=== PATIENT | male | born 1980 | race Caucasian/White ===

== ENCOUNTER 2018-01-31 09:17 | Emergency (ER) | payer BC ==
[2018-01-31 09:26] VITALS: BP 131/87
--- NOTE | 2018-01-31 10:07 | UC ---
Eye Complaint HPI - HPI Summary HPI Summary: 37 yo male presents with right eye redness and itchiness since yesterday. 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 Last night noticed his right eye was red and itchy - worse this morning. He is not having any vision difficulties. Denies fever or chills. Does not wear contacts. - History of Current Complaint Chief Complaint: UCEye Stated Complaint: R EYE COMPLAINT Time Seen by Provider: 01/31/18 10:07 Hx Obtained From: Patient Onset/Duration: Sudden Onset Severity Initially: Mild Severity Currently: Mild Pain Intensity: 2 Pain Scale Used: 0-10 Numeric - Allergies/Home Medications Allergies/Adverse Reactions: Allergies Allergy/AdvReac Type Severity Reaction Status Date / Time No Known Allergies Allergy Verified 01/31/18 09:25 PMH/Surg Hx/FS Hx/Imm Hx - Additional Past Medical History Additional PMH: None - Surgical History Surgical History: Yes Surgery Procedure, Year, and Place: knee - Family History Known Family History: Positive: None - Social History Occupation: Employed Full-time Lives: With Family Alcohol Use: Weekly Substance Use Type: Marijuana Substance Use Comment - Amount & Last Used: 2-3 times a year Smoking Status (MU): Never Smoked Tobacco Review of Systems Constitutional: Negative Skin: Negative Eyes: Drainage, Eye Redness - right ENT: Negative Respiratory: Negative Cardiovascular: Negative Neurovascular: Negative Neurological: Negative Psychological: Negative All Other Systems Reviewed And Are Negative: Yes Physical Exam - Summary Physical Exam Summary: GENERAL: WDWN. No pain distress. SKIN: No rashes, sores, lesions, or open wounds. HEENT: Head: AT/NC Eyes: EOM intact. PERRLA. RIGHT EYE: Mild scleral injection. Conjunctiva with mild erythema and inflammation. Mild clear discharge. LEFT EYE : Conjunctiva clear without inflammation or discharge. No FBs appreciated. Fluorescein exam performed on left without signs of abrasion or increased uptake. No mane sign. Nose: NTTP maxillary and frontal sinus. NECK: Supple. Nontender. No lymphadenopathy. CHEST: No accessory muscle use. Breathing comfortably and in no distress. CV: Pulses intact. Cap refill <2seconds NEURO: Alert. PSYCH: Age appropriate behavior. Triage Information Reviewed: Yes Vital Signs: Initial Vital Signs Temp 97.2 F 01/31/18 09:22 Pulse 67 01/31/18 09:22 Resp 18 01/31/18 09:22 BP 131/87 01/31/18 09:22 Pulse Ox 99 01/31/18 09:22 Vital Signs Reviewed: Yes Eye Complaint Course/Dx - Course Course Of Treatment: Dye exam is WNL and no FB were appreciated within in the cornea or under the eyelids. Will treat with antibiotic drops for conjunctivitis and have him f/u if his symptoms do not improve. - Differential Dx/Diagnosis Provider Diagnoses: Right eye conjunctivitis Discharge - Sign-Out/Discharge Documenting (check all that apply): Patient Departure All imaging exams completed and their final reports reviewed: No Studies - Discharge Plan Condition: Stable Disposition: HOME Prescriptions: Ofloxacin 0.3% (Eye Drop) [Ocuflox OPTH 0.3% (Eye Drop)] 1 drop RIGHT EYE QID # 1 btl Patient Education Materials: Conjunctivitis (ED) Referrals: No Primary Care Phys,NOPCP [Primary Care Provider] - Additional Instructions: If you develop a fever, shortness of breath, chest pain, new or worsening symptoms - please call your PCP or go to the ED. - Billing Disposition and Condition Condition: STABLE Disposition: Home
[2018-01-31] MEDS ORDERED: Tetracaine 0.5% OPTH.SOL 4 ML* 1 DROP BTL RIGHT EYE ONE (10:11)
[2018-01-31] MEDS ORDERED: Fluorescein Sodium TOPICAL* 1 MG TEST STRIP OPHTHALMIC ONE (10:11)
== END 2018-01-31 10:37 | disposition home or self-care (01) ==
LOC: UCEAST 09:17
DX: H10.31 Unspecified acute conjunctivitis, right eye (principal)
CPT/HCPCS: 99212; A9270-GY; G0463

== ENCOUNTER 2018-03-27 21:17 | Emergency (ER) | payer BC ==
--- NOTE | 2018-03-27 23:20 | ED ---
HPI Chest Pain - HPI Summary HPI Summary: This patient is a 37 year old M presenting to [facility] accompanied by his with a chief complaint of CP that began at 0630 this morning. The patient states he woke with the feeling of anxiety which was then followed by chest pressure and palpitations. He describes the pressure as a warm hand pressing into the middle of his chest. He states he then went to work and the chest pressure resolved and was fine at work all day but when he returned home he experienced a stabbing chest pain that radiated into his left shoulder blade, this prompted him to come to the ED. The patient rates the pain 7/10 in severity. Patient denies n/v/d, SOB, fever, chills, and diaphoresis. Pt took 4 ASA at 1900. - History of Current Complaint Chief Complaint: EDChestPainROMI Time Seen by Provider: 03/27/18 22:40 Hx Obtained From: Patient Onset/Duration: Started Hours Ago, Still Present Time of Onset: 06:30 Timing: Lasting Hours Initial Severity: Moderate Current Severity: Moderate Pain Intensity: 7 Pain Scale Used: 0-10 Numeric Chest Pain Location: Mid Sternal Chest Pain Radiates: Yes Chest Pain Radiates To:: Shoulder Character: Pressure/Squeezing, Sharp/Stabbing Associated Signs and Symptoms: Positive: Chest Pain, Anxiety. Negative: Shortness of Breath, Fever, Chills - Allergy/Home Medications Allergies/Adverse Reactions: Allergies Allergy/AdvReac Type Severity Reaction Status Date / Time No Known Allergies Allergy Verified 01/31/18 09:25 Home Medications: Home Medications Multivitamin [Once Daily] 1 each PO DAILY 03/27/18 [History Confirmed 03/27/18] PMH/Surg Hx/FS Hx/Imm Hx Endocrine/Hematology History: Denies: Hx Blood Transfusions, Hx Bone Marrow Disease, Hx Diabetes, Hx Sickle Cell Disease, Hx Anemia, Hx Unexplained Bleeding Cardiovascular History: Denies: Hx Cardiac Arrest, Hx Cardiomegaly, Hx Deep Vein Thrombosis, Hx Hypercholesterolemia Respiratory History: Denies: Hx Chronic Bronchitis, Hx Cystic Fibrosis, Hx Pleural Effusion History: Denies: Hx Acute Renal Failure, Hx Benign Prostatic Hyperplasia Musculoskeletal History: Denies: Hx Rheumatoid Arthritis, Hx Back Problems Psychiatric History: Denies: Hx Post Traumatic Stress Disorder, Hx Inpatient Treatment, Hx Bipolar Disorder - Surgical History Surgery Procedure, Year, and Place: knee Infectious Disease History: No Infectious Disease History: Denies: Traveled Outside the [place] in Last 30 Days - Family History Known Family History: Positive: Hypertension - Social History Occupation: Employed Full-time Lives: With Family Alcohol Use: Weekly Substance Use Type: Reports: Marijuana Substance Use Comment - Amount & Last Used: 2-3 times a year Smoking Status (MU): Never Smoked Tobacco Review of Systems Negative: Fever, Chills, Skin Diaphoresis Positive: Palpitations, Chest Pain Negative: Shortness Of Breath Negative: Vomiting, Diarrhea, Nausea Positive: Anxious All Other Systems Reviewed And Are Negative: Yes Physical Exam - Summary Physical Exam Summary: VITAL SIGNS: Reviewed. GENERAL: Patient is a well-developed and nourished male who is lying comfortable in the stretcher. Patient is not in any acute respiratory distress. HEAD AND FACE: No signs of trauma. No ecchymosis, hematomas or skull depressions. No sinus tenderness. EYES: PERRLA, EOMI x 2, No injected conjunctiva, no nystagmus. EARS: Hearing grossly intact. Ear canals and tympanic membranes are within normal limits. MOUTH: Oropharynx within normal limits. NECK: Supple, trachea is midline, no adenopathy, no JVD, no carotid bruit, no c- spine tenderness, neck with full ROM. CHEST: Symmetric, no tenderness at palpation LUNGS: Clear to auscultation bilaterally. No wheezing or crackles. CVS: Regular rate and rhythm, S1 and S2 present, no murmurs or gallops appreciated. ABDOMEN: Soft, non-tender. No signs of distention. No rebound no guarding, and no masses palpated. Bowel sounds are normal. EXTREMITIES: FROM in all major joints, no edema, no cyanosis or clubbing. NEURO: Alert and oriented x 3. No acute neurological deficits. Speech is normal and follows commands. SKIN: Dry and warm Triage Information Reviewed: Yes Vital Signs On Initial Exam: Initial Vitals Temp Pulse Resp BP Pulse Ox 97.9 F 74 20 150/94 100 03/27/18 21:18 03/27/18 21:18 03/27/18 21:18 03/27/18 21:18 03/27/18 21:18 Vital Signs Reviewed: Yes Diagnostics - Vital Signs Vital Signs Temp Pulse Resp BP Pulse Ox 03/27/18 21:18 97.9 F 74 20 150/94 100 - Laboratory Result Diagrams: 12/03/18 23:44 03/27/18 23:44 Lab Statement: Any lab studies that have been ordered have been reviewed, and results considered in the medical decision making process. - Radiology CXR Radiology Interpretation Completed By: ED Physician Summary of Radiographic Findings: no acute disease. Pending official report. - EKG 2124 Cardiac Rate: NL EKG Rhythm: Sinus Rhythm - at 83 BPM Summary of EKG Findings: Normal axis. Normal interval. No ischemic changes Chest Pain Course/Dx - Course Assessment/Plan: This patient is a 37 year old M presenting to [facility] accompanied by his with a chief complaint of CP that began at 0630 this morning. The patient states he woke with the feeling of anxiety which was then followed by chest pressure and palpitations. He describes the pressure as a warm hand pressing into the middle of his chest. He states he then went to work and the chest pressure resolved and was fine at work all day but when he returned home he experienced a stabbing chest pain that radiated into his left shoulder blade, this prompted him to come to the ED. The patient rates the pain 7/10 in severity. Patient denies n/v/d, SOB, fever, chills, and diaphoresis. Pt took 4 ASA at 1900. An EKG reveals Normal axis. Normal interval. No ischemic changes. CXR reveals, no acute disease. Pending official report. Bloodwork obtained. Patient will be discharged and follow up from Dr. vela. The patient is agreeable with this plan. - Diagnoses Provider Diagnoses: Chest pain Discharge - Sign-Out/Discharge Documenting (check all that apply): Patient Departure - Discharge Plan Condition: Stable Disposition: HOME Patient Education Materials: Chest Pain (ED) Referrals: Xavi Burns MD [Primary Care Provider] - Han Vela MD [Medical Doctor] - Additional Instructions: Please contact cardiology and schedule an outpatient stress test. Follow up with your primary care physician in 1-3 days. RETURN TO THE EMERGENCY DEPARTMENT FOR CHANGING OR WORSENING SYMPTOMS. - Attestation Statements Document Initiated by Scribe: Yes Documenting Scribe: Blake Emerson Provider For Whom Scribe is Documenting (Include Credential): Jeancarlos Hui MD Scribe Attestation: Blake Garcia , scribed for Jeancarlos Hui MD on 03/28/18 at 0411. Status of Scribe Document: Ready
[2018-03-27 23:53] LABS: ABS Basophils 0 10^3/ul (0-0.2); ABS Eosinophils 0.1 10^3/ul (0-0.6); ABS Lymphocytes 2.4 10^3/ul (1.0-4.8); ABS Monocytes 0.6 10^3/ul (0-0.8); ABS Neutrophils 2.9 10^3/ul (1.5-7.7); ABS Nucleated RBC 0 10^3/ul; Eosinophil % 2.1 %; Hematocrit 43 % (42-52); Hemoglobin 15.1 g/dl (14.0-18.0); Lymphocyte % 40.2 %; Mean Corpuscular HGB Conc 35 g/dl (31-36); Mean Corpuscular Hemoglobin 31 pg (27-31); Mean Corpuscular Volume 90 fL (80-94); Mean Platelet Volume 7.3 fL (7.4-10.4); Nucleated Red Blood Cells % 0.1; Platelet Count 231 10^3/ul (150-450); Red Blood Count 4.84 10^6/ul (4.00-5.40); Red Cell Distribution Width 13 % (10.5-15)
[2018-03-28 00:01] LABS: INR 0.9 (0.77-1.02)
[2018-03-28 00:10] LABS: EGFR Non-African American 104.6 (>60)
[2018-03-28 04:26] VITALS: BP 130/80
== END 2018-03-28 04:00 | disposition home or self-care (01) ==
LOC: ED 21:17
DX: R00.2 Palpitations (principal); R07.9 Chest pain, unspecified; F41.9 Anxiety disorder, unspecified
CPT/HCPCS: 36415; 71045; 80053; 83605; 83735; 84484; 85025; 85610; 85730; 93005; 99283

== ENCOUNTER 2019-04-24 11:55 | Day surgery (SDC) | payer BC ==
[~2019-04-24 11:55] MED LIST: Buffered Lidocaine 1% SYRIN* 1 ML/SYRINGE INTRADERM ONE; Famotidine IV* 10 MG/ML 2 ML (20 mg) IV ONE; Lactated Ringers 1000 ML Bag* 1,000 ML IV SCH
[2019-04-24] MEDS ORDERED: ceFAZolin 2 GM PREMIX in ORs 2 GM/50 ML BAG ONE (12:00)
[2019-04-24] MEDS ORDERED: Famotidine IV* 10 MG/ML 2 ML (20 mg) ONE (12:01)
[2019-04-24] MEDS ORDERED: Buffered Lidocaine 1% SYRIN* 1 ML/SYRINGE INTRADERM ONE (12:01)
[2019-04-24] MEDS ORDERED: fentaNYL* 50 MCG/ML 2 ML VIAL (100 MCG VIAL) ONE (12:17)
[2019-04-24] MEDS ORDERED: Midazolam* 1 MG/ML 5 ML VIAL (5 MG) ONE (12:17)
[2019-04-24] MEDS ORDERED: Lidocaine 1% MPF ** 5 ML VIAL ONE (13:15)
[2019-04-24] MEDS ORDERED: Bupivacaine 0.5% SDV PF* 30ML VIAL ONE (13:15)
[2019-04-24] MEDS ORDERED: ROPIVACAINE 5 MG/ML 30 ML BTL (0.5%) ONE (13:35)
[2019-04-24] MEDS ORDERED: Ropivacaine 0.2% * 2 MG/ML VIAL ONE (13:52)
[2019-04-24] MEDS ORDERED: Dexamethasone IV* 4 MG/ML 1 ML (4 MG) ONE (14:13)
[2019-04-24] MEDS ORDERED: Propofol* 10 MG/ML 20 ML BTL ONE (14:13)
[2019-04-24] MEDS ORDERED: Ondansetron INJ* 2 MG/ML VIAL ONE (14:13)
[2019-04-24] MEDS ORDERED: Succinylcholine* 20 MG/ML 10 ML VIAL ONE (14:13)
[2019-04-24] MEDS ORDERED: DiMENhydriNATE IV* 50 MG/ML VIAL ONE (14:13)
[2019-04-24] MEDS ORDERED: Lidocaine 2% PF * 5 ML VIAL ONE (14:13)
[2019-04-24] MEDS ORDERED: Ketorolac INJ* 30 MG/ML 1 ML VIAL ONE (14:13)
[2019-04-24] MEDS ORDERED: methylPREDNISolone ACETATE 80* 80 MG/ML 1 ML VIAL ONE (14:35)
[2019-04-24] MEDS ORDERED: Naloxone* 0.4 MG/ML 1 ML VIAL IV PRN (14:41)
[2019-04-24] MEDS ORDERED: oxyCODONE/Acetamin 5/325 MG* TAB PO PRN (14:41)
[2019-04-24] MEDS ORDERED: DiMENhydriNATE IV* 50 MG/ML VIAL IV PUSH PRN (14:41)
[2019-04-24] MEDS ORDERED: Acetaminophen TAB* 325 MG PO PRN (14:41)
[2019-04-24 15:49] VITALS: BP 150/96
--- NOTE | 2019-04-26 09:33 | OP ---
DATE OF OPERATION: 04/24/19 - MERGED WITH [facility] DATE OF : 76 SURGEON: Beverly Upton MD AGATE SETTER: MEENA Downey ANESTHESIOLOGIST: Dr. Crabtree. ANESTHESIA: General, interscalene block. PRE-OP DIAGNOSES: Impingement of left shoulder with superior labral tear, biceps tendinitis. POST-OP DIAGNOSES: Impingement of left shoulder with superior labral tear, biceps tendinitis. OPERATIVE PROCEDURE: Left shoulder arthroscopy with: 1. Extensive glenohumeral debridement including debridement of the anterior and posterior labrum. 2. Subacromial decompression with acromioplasty. 3. Subpectoral biceps tenodesis. IMPLANTS: Q-Fix 2.8 mm. COMPLICATIONS: None. ESTIMATED BLOOD LOSS: Minimal. INDICATIONS: Alexys Medina is a 38-year-old who presents with persistent shoulder pain. He had a lateral ache. He has failed conservative management. He has had injections. He also has some bicipital tendinitis and tendinosis. After extensive discussion of risks, and benefits of operative versus nonoperative treatment, he has elected to proceed with surgical treatment. Risk include but not limited to bleeding, infection, damage to nerves, vessels, or surrounding structures, wound nonhealing, persistent pain, need for further surgery, scarring, stiffness, incomplete relief of symptoms and risk of anesthesia. DESCRIPTION OF PROCEDURE: The patient was greeted in the preoperative area. Correct extremity was marked and consent was confirmed. He underwent interscalene nerve block after which he was brought back to the operating suite where he was placed in supine position on the operating table, then underwent general anesthesia with endotracheal intubation, after which he was placed in the right lateral decubitus position. All bony prominences were padded. He was secured with a pegboard. The left arm was draped unsterile with 10 pounds of traction. The left shoulder was then prepped and draped in usual sterile fashion beginning with chlorhexidine soap scrub and alcohol wipe and a final prep with ChloraPrep. After appropriate surgical pause indicating site, side, procedure, and administration of antibiotics. The standard posterior lateral portal was made sharply with #11 blade. The scope was introduced into the joint. Joint was examined. The rotator cuff undersurface looked intact. There was mild fraying of the superior labrum, but he had an excessive reattachment of his biceps, which can often cause impingement. He had a lot of synovitis posterior along the biceps. The subscap is intact. There was some fraying of the anterior posterior superior labrum. There was grade 0 to 1 change of glenohumeral joint. The biceps was then tenotomized for later tenodesis. Once the intraarticular work was completed, attention was directed to subacromial space. The scope was placed in the subacromial space and the lateral portal was made in an outside-in fashion. Shaver was used to debride back the abundant thick hyperemic bursa that was present. There was a small anterior lateral spur that was skeletonized using electrocautery device, 4-0 oval maya and the CA ligament was released. A 4-0 oval bur was then used to gently do an acromioplasty. Once this was complete, the cuff was examined and found to be intact, which did corroborate the MRI findings. An 18-gauge needle was then placed in the subacromial space and for later Depo-Medrol injection. All fluid and debris was removed. The bed was airplaned to the left side. The anterior aspect of the shoulder was prepped again using ChloraPrep. The #15 blade was used to make incision encompassing the inferior third of the pec and along the bicipital groove. Soft tissue was carefully dissected to expose the pec then the remainder section was done bluntly. The biceps was palpated through the wound and brought through the abundant synovitis that was present. Groove was then prepared in usual fashion using electrocautery device, red ball, rasp, and osteotome. The Q-Fix was deployed with excellent purchase. The sutures were then passed through the tendon at 1 cm proximal to the musculotendinous junction in a Yevgeniy-Baldev type configuration. The wounds were copiously irrigated. The portals were closed with 3-0 nylon. The skin was closed with 3- 0 Monocryl. 80 mg of depomedrol was injected into the subacromial space. Sterile dressings were applied. A Cryo/Cuff and a UltraSling were applied. He was awoken from anesthesia and transferred to PACU in stable condition. POSTOPERATIVE PLAN: He will be nonweightbearing. He will be in a sling for 3 weeks. Discharged on pain medication. DVT prophylaxis was considered but deferred due to no previous personal or family history. I will see the patient back in 10 to 14 days. [id number]/[facility] #: [id number] MTDFrank
== END 2019-04-24 16:32 | disposition home or self-care (01) ==
LOC: OR 11:55
PROVIDERS: ATTEND Orthopaedic Surgery
DX: M75.42 Impingement syndrome of left shoulder (principal); M75.22 Bicipital tendinitis, left shoulder; Z87.891 Personal history of nicotine dependence; F41.9 Anxiety disorder, unspecified; G89.18 Other acute postprocedural pain
CPT/HCPCS: C1776; J0330; J0690; J1040; J1100; J1240; J1885; J2250; J2405; J2704; J2795; J3010; J3490